=== PATIENT | female | born 1940 | race Caucasian/White ===

== ENCOUNTER 2016-12-07 07:44 | Outpatient (CLI) | payer MEDICARE, OTHER ==
[2016-12-07 12:16] LABS: BASOPHILS # (AUTO) 0.1 10^3/uL (0.0-0.1); BASOPHILS % (AUTO) 2.1 %; EOSINOPHILS # (AUTO) 0.4 10^3/uL (0.0-0.7); EOSINOPHILS % (AUTO) 6.2 %; HCT - HEMATOCRIT 41.1 % (37.0-47.0); HGB - HEMOGLOBIN 13.5 g/dL (12.0-16.0); LYMPHOCYTES # (AUTO) 1.1 10^3/uL (1.5-3.5); LYMPHOCYTES % (AUTO) 17.5 %; MEAN CORPUSCULAR HEMOGLOBIN 32.7 pg (27.0-31.0); MEAN CORPUSCULAR HGB CONC 32.8 g/dL (32.0-36.0); MEAN CORPUSCULAR VOLUME 99.7 fL (81.0-99.0); MEAN PLATELET VOLUME 11.2 fL (7.9-10.8); MONOCYTES # (AUTO) 0.5 10^3/uL (0.0-1.0); MONOCYTES % (AUTO) 8.7 %; NEUTROPHILS % (AUTO) 65.5 %; RED BLOOD COUNT 4.13 10^6/uL (4.20-5.40); RED CELL DISTRIBUTION WIDTH 13.3 % (12.0-15.0); UNCORRECTED WHITE BLOOD COUNT 6.1 x10^3/uL; WHITE BLOOD COUNT 6.1 x10^3/uL (4.8-10.8)
[2016-12-07 12:23] LABS: ALBUMIN/GLOBULIN RATIO 1.8 (1.0-2.2); BILIRUBIN,TOTAL 0.7 mg/dL (0.2-1.0); BUN - BLOOD UREA NITROGEN 15 mg/dL (6-20); CALCIUM 9.5 mg/dL (8.5-10.3); CARBON DIOXIDE - CO2 30 mmol/L (21-32); CHLORIDE 101 mmol/L (101-111); CHOL/HDL RATIO 2.6 (<4.4); CHOLESTEROL 214 mg/dL; CREATININE 0.7 mg/dL (0.4-1.0); GFR - MDRD 81 (>89); GLUCOSE 107 mg/dL (70-100); HDL CHOLESTEROL 83 mg/dL; LDL/HDL RATIO 1.3 (<4.4); POTASSIUM 4.2 mmol/L (3.5-5.0); SODIUM 137 mmol/L (135-145); TOTAL PROTEIN 6.9 g/dL (6.7-8.2); TRIGLYCERIDES 101 mg/dL; VLDL CHOLESTEROL 20 mg/dL
[2016-12-07 20:37] LABS: HEMOGLOBIN A1C 0.5 g/dL
== END 2016-12-07 07:45 | disposition home or self-care (01) ==
LOC: LAB.F 07:44
PROVIDERS: ATTEND Internal Medicine
DX: E03.9 Hypothyroidism, unspecified (principal); R73.9 Hyperglycemia, unspecified; G25.0 Essential tremor; D05.10 Intraductal carcinoma in situ of unspecified breast
CPT/HCPCS: 36415; 80053; 80061; 83036; 84443; 85025

== ENCOUNTER 2017-06-02 08:32 | Outpatient (CLI) | payer MEDICARE, OTHER ==
[2017-06-02 11:11] LABS: HB2 TOTAL 14.3 g/dL; HEMOGLOBIN A1C 0.51 g/dL; HEMOGLOBIN A1C % 5.4 % (4.6-6.2)
== END 2017-06-02 08:33 | disposition home or self-care (01) ==
LOC: LAB.F 08:32
PROVIDERS: ATTEND Internal Medicine
DX: R73.9 Hyperglycemia, unspecified (principal); E03.9 Hypothyroidism, unspecified
CPT/HCPCS: 36415; 82947; 83036; 84443

== ENCOUNTER 2018-01-24 14:08 | Outpatient (CLI) | payer MEDICARE, OTHER ==
--- NOTE | 2018-01-31 09:13 | Mammography Report ---
Reason: SCREENING MAMMO Procedure Date: 01/24/2018 Accession Number: [id number] / [id number] Procedure: [facility] - Screening Mammo w/Iggy CPT Code: FULL RESULT: EXAM: Screening Mammo w/Iggy DATE: 01/24/2018 4:55 PM CLINICAL HISTORY: 77-year-old female with history of breast biopsy and family history of breast cancer in the mother at age 70 presents for screening. TECHNIQUE: Bilateral CC and MLO views were obtained. COMPARISON: 11/18/2016, 09/25/2015, 07/24/2014, 05/17/2013. FINDINGS: The breasts demonstrate heterogeneously dense fibroglandular parenchyma bilaterally. Coarse typically benign calcifications are identified. No suspicious masses, clustered microcalcifications, or regions of architectural distortion are identified. IMPRESSION: Benign findings RECOMMENDATION: Routine annual screening unless otherwise clinically indicated. BIRADS CATEGORY 2: Benign findings STANDARD QUALIFYING STATEMENTS: 1. This examination was not reviewed with the aid of Computer-Aided Detection (CAD). 2. A negative or benign imaging report should not delay biopsy if clinically suspicious findings are present. Consider surgical consultation if warranted. More than 5% of cancers are not identified by imaging. 3. Dense breasts may obscure an underlying neoplasm. 4. This examination was reviewed with the aid of 3D breast imaging (tomosynthesis).
== END 2018-01-24 14:09 | disposition home or self-care (01) ==
LOC: DI 14:08
DX: Z12.31 Encounter for screening mammogram for malignant neoplasm of breast (principal); Z80.3 Family history of malignant neoplasm of breast
CPT/HCPCS: 77063; 77067

== ENCOUNTER 2018-02-16 08:37 | Outpatient (CLI) | payer MEDICARE, OTHER ==
[2018-02-16 11:23] LABS: BASOPHILS # (AUTO) 0.1 10^3/uL (0.0-0.1); BASOPHILS % (AUTO) 1.4 %; EOSINOPHILS # (AUTO) 0.5 10^3/uL (0.0-0.7); HGB - HEMOGLOBIN 13.2 g/dL (12.0-16.0); LYMPHOCYTES # (AUTO) 1.1 10^3/uL (1.5-3.5); LYMPHOCYTES % (AUTO) 16.6 %; MEAN CORPUSCULAR HEMOGLOBIN 33.4 pg (27.0-31.0); MEAN CORPUSCULAR HGB CONC 34.1 g/dL (32.0-36.0); MONOCYTES # (AUTO) 0.6 10^3/uL (0.0-1.0); MONOCYTES % (AUTO) 9.9 %; NEUTROPHILS # (AUTO) 4.3 10^3/uL (1.5-6.6); NEUTROPHILS % (AUTO) 65.1 %; PLT - PLATELET COUNT 307 10^3/uL (130-450); RED BLOOD COUNT 3.95 10^6/uL (4.20-5.40); RED CELL DISTRIBUTION WIDTH 13.3 % (12.0-15.0); WHITE BLOOD COUNT 6.5 x10^3/uL (4.8-10.8)
[2018-02-16 11:32] LABS: ALBUMIN 4.4 g/dL (3.2-5.5); ALBUMIN/GLOBULIN RATIO 1.6 (1.0-2.2); BILIRUBIN,TOTAL 0.6 mg/dL (0.2-1.0); CALCIUM 9.2 mg/dL (8.5-10.3); CREATININE 0.6 mg/dL (0.4-1.0); TOTAL PROTEIN 7.1 g/dL (6.7-8.2)
[2018-02-16 11:48] LABS: HB2 TOTAL 13.7 g/dL; HEMOGLOBIN A1C 0.51 g/dL; HEMOGLOBIN A1C % 5.6 % (4.6-6.2)
== END 2018-02-16 08:38 | disposition home or self-care (01) ==
LOC: LAB.F 08:37
PROVIDERS: ATTEND Internal Medicine
DX: R73.9 Hyperglycemia, unspecified (principal); E03.9 Hypothyroidism, unspecified; G25.0 Essential tremor; D05.10 Intraductal carcinoma in situ of unspecified breast
CPT/HCPCS: 36415; 80053; 83036; 84443; 85025

== ENCOUNTER 2019-04-06 15:47 | Outpatient (CLI) | payer MEDICARE, OTHER ==
--- NOTE | 2019-04-07 10:07 | DEXA Report ---
Reason: POSTMENOPAUSAL Procedure Date: 04/06/2019 Accession Number: [id number] / [id number] Procedure: DEX - Dexa Spine and/or Hip CPT Code: Final Report FULL RESULT: EXAM: Dexa Spine and/or Hip DATE: 04/06/2019 4:52 PM CLINICAL HISTORY: POSTMENOPAUSAL TECHNIQUE: Dual energy x-ray absorptiometry (DXA) was performed on a [employer] System. Regions measured are the AP Spine, femoral neck, and if needed forearm. COMPARISON: 09/19/2015. In accordance with the International Society for Clinical Densitometry (ISCD) guidelines, data from previous exams may be reanalyzed using current recommendations and techniques. This is done to allow a more accurate basis for comparison with the current study. FINDINGS: The data for the lumbar spine is as follows: BMD (g/cm/cm) T-SCORE Z-SCORE REGION L1 1.207 0.6 2.2 L2 1.415 1.8 3.3 L3 1.493 2.4 4.0 L4 1.442 2.0 3.6 TOTAL 1.399 1.8 3.4 NOTE: All evaluable vertebrae are used for classification The data for the hip is as follows: BMD (g/cm/cm) T-SCORE Z-SCORE REGION Neck 1.055 0.1 2.1 TOTAL 0.953 -0.4 1.3 NOTE: The femoral neck or total proximal femur, whichever is lowest, is used for classification. DXA RESULTS SUMMARY: Spine SCAN DATE AGE BMD CHANGE VS CHANGE VS PREVIOUS PREVIOUS % 04[age]06/2019 [age] 1.442 -0.108* -7.0* 09/18/2016 [age] 1.550 * Denotes significant change at the 95% confidence level. Denotes dissimilar scan types or analysis methods. DXA RESULTS SUMMARY: Hip SCAN DATE AGE BMD CHANGE VS CHANGE VS PREVIOUS PREVIOUS % [birth year]06/2019 78.7 0.953 0.001 0.1 09/19/2015 [age] 0.952 * Denotes significant change at the 95% confidence level. Denotes dissimilar scan types or analysis methods. IMPRESSION: THE WHO CLASSIFICATION BASED ON THE INTERNATIONAL REFERENCE STANDARD IS NORMAL. THE FRACTURE RISK IS NOT INCREASED. Interval decrease in bone density in the spine is statistically significant. RECOMMENDATION: Patients with diagnosis of osteoporosis or osteopenia should have regular bone mineral density assessment. For those eligible for Medicare, routine testing is allowed once every 2 years. Testing frequency can be increased for patients who have rapidly progressing disease or for those who are receiving medical therapy to restore bone mass. COMMENT: World Health Organization (WHO) definitions for osteoporosis and osteopenia: NORMAL BMD: T-score at -1.0 or higher, fracture risk is low OSTEOPENIA BMD: T-score between -1.0 and -2.5, fracture risk is increased. OSTEOPOROSIS BMD: T-score at -2.5 or lower, fracture risk is high. National Osteoporosis Foundation recommends: 1. Obtain adequate dietary calcium (at least 1200 mg per day) and vitamin D (400-800 international units per day). 2. Participate, as appropriate, in regular weightbearing and muscle-strengthening exercise. 3. Avoid tobacco use and reduce alcohol and caffeine intake. 4. For more detailed information see the website at www.NOF.org.
== END 2019-04-06 15:48 | disposition home or self-care (01) ==
LOC: DI 15:47
PROVIDERS: ATTEND Physician Assistant
DX: Z78.0 Asymptomatic menopausal state (principal)
CPT/HCPCS: 77080

== ENCOUNTER 2021-07-26 10:23 | Outpatient (CLI) | payer MEDICARE, OTHER ==
[2021-07-26 18:19] LABS: BASOPHILS # (AUTO) 0.2 10^3/uL (0.0-0.1); BASOPHILS % (AUTO) 2.5 %; EOSINOPHILS # (AUTO) 0.5 10^3/uL (0.0-0.7); HGB - HEMOGLOBIN 12.6 g/dL (12.0-16.0); LYMPHOCYTES # (AUTO) 0.8 10^3/uL (1.5-3.5); LYMPHOCYTES % (AUTO) 12.7 %; MEAN CORPUSCULAR HEMOGLOBIN 32.1 pg (27.0-31.0); MEAN CORPUSCULAR HGB CONC 32.3 g/dL (32.0-36.0); MEAN CORPUSCULAR VOLUME 99.5 fL (81.0-99.0); MONOCYTES # (AUTO) 0.6 10^3/uL (0.0-1.0); MONOCYTES % (AUTO) 9.4 %; NEUTROPHILS # (AUTO) 4.4 10^3/uL (1.5-6.6); NEUTROPHILS % (AUTO) 67.2 %; PLT - PLATELET COUNT 332 10^3/uL (130-450); RED BLOOD COUNT 3.92 10^6/uL (4.20-5.40); RED CELL DISTRIBUTION WIDTH 14.2 % (12.0-15.0); WHITE BLOOD COUNT 6.5 x10^3/uL (4.8-10.8)
[2021-07-26 18:44] LABS: ALBUMIN 4.2 g/dL (3.2-5.5); ALBUMIN/GLOBULIN RATIO 1.6 (1.0-2.2); ALKALINE PHOSPHATASE 67 IU/L (42-121); ALT ALANINE AMINOTRANSFERASE 25 IU/L (10-60); AST ASPARTATE AMINOTRANSFERASE 30 IU/L (10-42); BILIRUBIN,TOTAL 0.6 mg/dL (0.2-1.0); BUN - BLOOD UREA NITROGEN 16 mg/dL (6-20); CALCIUM 9.5 mg/dL (8.5-10.3); CARBON DIOXIDE - CO2 30 mmol/L (21-32); CHLORIDE 99 mmol/L (101-111); CHOL/HDL RATIO 2.4 (<4.4); CHOLESTEROL 187 mg/dL; CREATININE 0.7 mg/dL (0.4-1.0); GFR - MDRD 80 (>89); GLUCOSE 103 mg/dL (70-100); HDL CHOLESTEROL 77 mg/dL; LDL CHOLESTEROL,CALCULATED 97 mg/dL; LDL/HDL RATIO 1.3 (<4.4); POTASSIUM 4.4 mmol/L (3.5-5.0); SODIUM 138 mmol/L (135-145); TOTAL PROTEIN 6.9 g/dL (6.7-8.2); TRIGLYCERIDES 65 mg/dL; VLDL CHOLESTEROL 13 mg/dL
[2021-07-27 07:34] LABS: ESTIMATED AVERAGE GLUCOSE 114 mg/dL (70-100); HEMOGLOBIN A1c% 5.6 % (4.27-6.07)
== END 2021-07-26 10:24 | disposition home or self-care (01) ==
LOC: LAB.S 10:23
PROVIDERS: ATTEND Internal Medicine
DX: Z13.1 Encounter for screening for diabetes mellitus (principal); R79.89 Other specified abnormal findings of blood chemistry; Z13.220 Encounter for screening for lipoid disorders; G47.33 Obstructive sleep apnea (adult) (pediatric); R30.0 Dysuria
CPT/HCPCS: 36415; 80053; 80061; 83036; 83721; 84443; 85025

== ENCOUNTER 2022-04-30 07:50 | Emergency (ER) | payer MEDICARE, OTHER ==
--- NOTE | 2022-04-30 08:11 | ED Physician Documentation ---
PD HPI CHEST PAIN - Stated complaint Stated Complaint: HEART PALPITATIONS - Chief complaint Chief Complaint: Cardiac - History of Present Illness Timing - onset: How many weeks ago (has had feeling of irregularity of heart rhythm intermittently for the past week or more. No chest pain per se.) Timing - onset during: Rest (mostly feeling it during rest or when lying in bed. not noted during activity/axercise. no exertional cp, dyspnae, near syncope.) Timing - duration: Minutes (she states episode of hR feeling fast will last from couple of minutes to longest of about 30 mimutes.) Timing - details: Intermittant Quality: No: Pressure, Tightness, Aching Location: Substernal Radiation: No: Jaw, Neck Worsened by: No: Inspiration Associated symptoms: Palpitations. No: Shortness of air, Nausea, Feeling faint / dizzy Similar symptoms before: Has not had sx before (this is new for her the past few weeks.) Recently seen: Clinic (seen by endocriniologist about thyroid function about 2 months ago and has been on thryoid supplemnt about 2 months.) Review of Systems Constitutional: denies: Fever, Chills Nose: denies: Rhinorrhea / runny nose, Congestion Throat: denies: Sore throat Cardiac: reports: Palpitations. denies: Chest pain / pressure, Pedal edema, Calf pain Respiratory: denies: Cough GI: denies: Abdominal Pain, Nausea, Vomiting Skin: denies: Rash, Lesions PD PAST MEDICAL HISTORY - Past Medical History Cardiovascular: None Respiratory: None Neuro: None Endocrine/Autoimmune: HyPOthyroidism GI: None - Present Medications Home Medications: Ambulatory Orders Medication Instructions Recorded Confirmed Levothyroxine [Synthroid] 25 mcg PO QDAC 04/30/22 04/30/22 dilTIAZem HCL [Diltiazem HCl] 60 mg PO BID PRN #10 tablet 04/30/22 valACYclovir [Valtrex] 500 mg PO DAILY 04/30/22 04/30/22 - Allergies Allergies/Adverse Reactions: Allergies Allergy/AdvReac Type Severity Reaction Status Date / Time No Known Drug Allergies Allergy Verified 04/30/22 08:07 - Social History Does the pt smoke?: No Does the pt drink ETOH?: Yes ETOH Use: Wine (1-2 drinks several times per week. ) Does the pt have substance abuse?: No - Family History Family history: reports: Non contributory PD ED PE NORMAL - Vitals Vital signs reviewed: Yes - General General: Alert and oriented X 3, No acute distress, Well developed/nourished - Neck Neck: Supple, no meningeal sign, No adenopathy, Thyroid normal - Cardiac Cardiac: RRR, No murmur - Respiratory Respiratory: Clear bilaterally - Abdomen Abdomen: Normal bowel sounds, Soft, Non tender, Non distended - Derm Derm: Normal color, Warm and dry - Extremities Extremities: No edema, No calf tenderness / cord - Neuro Neuro: Alert and oriented X 3, No motor deficit, Normal speech Results - Vitals Vitals: Vital Signs - 24 hr 04/30/22 04/30/22 08:01 09:41 Temperature 36.8 C 36.7 C Heart Rate 70 68 Respiratory 16 18 Rate Blood Pressure 138/54 H 139/61 H O2 Saturation 99 100 Oxygen O2 Source Room air - EKG (time done) 08:07 Rate: Rate (enter#) (66) Rhythm: NSR [place]: Normal Intervals: Normal [place] QRS: Normal Ischemia: Normal ST segments. No: ST elevation c/w ischemia, ST depression Compare to prior EKG: Old EKG unavailable - Labs Labs: Laboratory Tests 04/30/22 04/30/22 04/30/22 08:50 08:50 08:50 WBC 7.7 RBC 4.09 L Hgb 13.0 Hct 40.4 MCV 98.8 MCH 31.8 H MCHC 32.2 RDW 13.2 Plt Count 375 MPV 12.0 H Neut # (Auto) 5.8 Lymph # (Auto) 0.7 L [place] # (Auto) 0.6 Eos # (Auto) 0.5 Baso # (Auto) 0.1 Absolute Nucleated RBC 0.00 Nucleated RBC % 0.0 Sodium 134 L Potassium 4.3 Chloride 97 L Carbon Dioxide 31 Anion Gap 6.0 BUN 23 H Creatinine 0.7 Estimated GFR (MDRD) 80 L Glucose 117 H Calcium 9.5 Magnesium 2.4 Total Bilirubin 0.6 AST 28 ALT 20 Alkaline Phosphatase 62 B-Natriuretic Peptide 50 Total Protein 7.2 Albumin 4.2 Globulin 3.0 Albumin/Globulin Ratio 1.4 Lipase 55 H TSH Thyroxine (T4) Free T3 pg/mL T3 Uptake 04/30/22 08:50 WBC RBC Hgb Hct MCV MCH MCHC RDW Plt Count MPV Neut # (Auto) Lymph # (Auto) [place] # (Auto) Eos # (Auto) Baso # (Auto) Absolute Nucleated RBC Nucleated RBC % Sodium Potassium Chloride Carbon Dioxide Anion Gap BUN Creatinine Estimated GFR (MDRD) Glucose Calcium Magnesium Total Bilirubin AST ALT Alkaline Phosphatase B-Natriuretic Peptide Total Protein Albumin Globulin Albumin/Globulin Ratio Lipase TSH 2.53 Thyroxine (T4) 7.06 Free T3 pg/mL 2.77 T3 Uptake 41.2 PD Medical Decision Making - ED course Complexity details: reviewed results, considered differential (it sounds like possible paroxysmal atrial fib, or svt or frequent pac/PVCs. Of course, there is not any symptoms here to eval on monitor/ECG. ), d/w patient, d/w taxation consultant (I talked with arya, nurse at [facility], as patient's pmd is out of the office. they will attempt to set patient up with ziopatch type heart monitor in next couple of days. patient has had symptoms episodically over 1-2 weeks, so seems non threatening, so time to get it evaluated seems safe.) Departure - Departure Disposition: 01 Home, Self Care Clinical Impression: Intermittent palpitations Condition: Stable Record reviewed to determine appropriate education?: Yes Instructions: ED Palpitations Prescriptions: dilTIAZem HCL [Diltiazem HCl] 60 mg PO BID PRN #10 tablet PRN Reason: Tachycardia Comments: Your basic electrolytes here are good including potassium, magnesium, calcium and sodium. I do not have your thyroid test results back as yet. Those likely will result later today. You can find the results on your patient portal and they will be available to your primary care. For now be sure to stay well-hydrated.. You could decrease your thyroid medication to every other day for now pending the thyroid test results and talking with your certified juvenile probation officer. Defining what type of irregular heart rhythm you are having will be the most useful. I talked with one of the nurses at the [facility] (Arya) who will discuss it with one of the providers and see if they will set you up with the outpatient heart rhythm monitor that you wear for a week. They we will call you later today to advise on it. I will be the next step in seeing what these episodes are. Meanwhile if you have an episode that is prolonged, lasting more than 30 minutes or so and is bothersome, you could try oral diltiazem. It will take 20 or 30 minutes for the medication to have an effect but see if it will slow the heart rate and control it better. I wrote a script for some of these to have on hand, and transmitted it to [facility] in [place]. This approach is called the "pill in the pocket" idea of taking it just when having prolonged symptoms. I would not suggest taking the diltiazem regularly at this point and when you have the heart monitor on, be sure to allow the abnormal rhythm to go for a a while before taking the diltiazem so that it gets a good recording of it. Return to the ER if other symptoms associated with the irregularity such as chest pain, shortness of breath, near fainting or other concerns. Discharge Date/Time: 04/30/22 09:41
[2022-04-30 08:59] LABS: BASOPHILS # (AUTO) 0.1 10^3/uL (0.0-0.1); BASOPHILS % (AUTO) 1.8 %; EOSINOPHILS # (AUTO) 0.5 10^3/uL (0.0-0.7); EOSINOPHILS % (AUTO) 5.8 %; HCT - HEMATOCRIT 40.4 % (37.0-47.0); LYMPHOCYTES # (AUTO) 0.7 10^3/uL (1.5-3.5); LYMPHOCYTES % (AUTO) 9.4 %; MEAN CORPUSCULAR HEMOGLOBIN 31.8 pg (27.0-31.0); MEAN CORPUSCULAR HGB CONC 32.2 g/dL (32.0-36.0); MEAN CORPUSCULAR VOLUME 98.8 fL (81.0-99.0); MONOCYTES # (AUTO) 0.6 10^3/uL (0.0-1.0); MONOCYTES % (AUTO) 7.4 %; NEUTROPHILS # (AUTO) 5.8 10^3/uL (1.5-6.6); NEUTROPHILS % (AUTO) 75.3 %; PLT - PLATELET COUNT 375 10^3/uL (130-450); RED BLOOD COUNT 4.09 10^6/uL (4.20-5.40); RED CELL DISTRIBUTION WIDTH 13.2 % (12.0-15.0); WHITE BLOOD COUNT 7.7 x10^3/uL (4.8-10.8)
[2022-04-30 09:11] LABS: ALBUMIN 4.2 g/dL (3.2-5.5); ALBUMIN/GLOBULIN RATIO 1.4 (1.0-2.2); BILIRUBIN,TOTAL 0.6 mg/dL (0.2-1.0); CALCIUM 9.5 mg/dL (8.5-10.3); CREATININE 0.7 mg/dL (0.4-1.0); MAGNESIUM 2.4 mg/dL (1.7-2.8); POTASSIUM 4.3 mmol/L (3.5-5.0); TOTAL PROTEIN 7.2 g/dL (6.7-8.2)
[2022-04-30 09:25] LABS: T3 UPTAKE 41.2 % (32.0-48.4)
[2022-04-30 09:26] LABS: T4 (THYROXINE) 7.06 ug/dL (6.09-12.23)
[2022-04-30 09:28] LABS: THYROID STIMULATING HORMONE 2.53 uIU/mL (0.34-5.60)
[2022-04-30 09:29] LABS: FREE T3 2.77 pg/mL (2.5-3.9)
[2022-04-30 09:42] VITALS: BP 139/61
== END 2022-04-30 09:41 | disposition home or self-care (01) ==
LOC: ED 07:50
DX: R00.2 Palpitations (principal); E03.9 Hypothyroidism, unspecified
CPT/HCPCS: 36415; 80053; 83690; 83735; 83880; 84436; 84443; 84479; 84481; 85025; 93005; 99283; 99284

== ENCOUNTER 2022-05-05 13:29 | Outpatient (CLI) | payer MEDICARE, OTHER | END 2022-05-05 13:30 | disposition home or self-care (01) | LOC: MAC.MOP 13:29 | PROVIDERS: ATTEND Internal Medicine | DX: R00.2 Palpitations (principal) | CPT/HCPCS: 93246 ==

== ENCOUNTER 2022-05-20 09:36 | Outpatient (CLI) | payer MEDICARE, OTHER | END 2022-05-20 09:37 | disposition home or self-care (01) | LOC: MAC.MOP 09:36 | PROVIDERS: ATTEND Internal Medicine | DX: Z53.9 Procedure and treatment not carried out, unspecified reason (principal) ==

== ENCOUNTER 2022-05-31 10:30 | Outpatient (CLI) | payer MEDICARE, OTHER | END 2022-05-31 10:31 | disposition home or self-care (01) | LOC: MAC.INF 10:30 | PROVIDERS: ATTEND Internal Medicine | DX: R00.2 Palpitations (principal); I47.1 Supraventricular tachycardia; I47.20 Ventricular tachycardia, unspecified; I49.1 Atrial premature depolarization; I45.9 Conduction disorder, unspecified; I49.3 Ventricular premature depolarization | CPT/HCPCS: 93248 ==

== ENCOUNTER 2022-07-07 10:47 | Outpatient (CLI) | payer MEDICARE, OTHER ==
--- NOTE | 2022-07-08 12:13 | Mammography Report ---
BILATERAL DIGITAL SCREENING MAMMOGRAM 3D/2D: 07/07/2022 CLINICAL: Routine screening. Comparison is made to exams dated: 01/24/2018 mammogram - [facility], 11/18/2016 ma mmogram, 09/25/2015 mammogram, 07/24/2014 mammogram, 05/17/2013 mammogram, and 04/20/2012 mammogram - Out side facility. Both breasts are heterogeneously dense, which may obscure small masses (category c / 51-75% glandular tissue). There is a pleomorphic calcification in the left breast at 7 o'clock middle depth. No other significant masses, calcifications, or other findings are seen in either breast. IMPRESSION: INCOMPLETE: NEEDS ADDITIONAL IMAGING EVALUATION The pleomorphic calcification in the left breast is indeterminate. Additional views with possible ul trasound are recommended. Based on the Tyrer Cuzick model (a risk assessment model) the patients lifetime risk is 1.3% and her 10 year risk is 0.0%. According to the ACR, ACS, and NCCN guidelines, an annual breast MRI exam katina g with mammogram is recommended if the patients lifetime risk is 20% or greater. This exam was interpreted at Station ID: [id number]. NOTE: For mammograms, a report in lay terms will be sent to the patient. Approximately 15% of breast malignancies will not be visualized mammographically. In the management of a palpable breast mass, a negative mammogram must not discourage biopsy of a clinically suspicious lesion. Electronically Signed By: Sparkle adams/[email or web address]:07/07/2022 15:58:24 ACR BI-RADS Category 0: Incomplete 3340F PARENCHYMAL PATTERN: (D) - The breast(s) demonstrate(s) heterogeneously dense fibroglandular parenchy ma. BI-RADS CATEGORY: (0) - 0 Mammo and [place] [id number] Immediate follow-up LATERALITY: (B)
== END 2022-07-07 10:48 | disposition home or self-care (01) ==
LOC: DI.S 10:47
DX: Z12.31 Encounter for screening mammogram for malignant neoplasm of breast (principal); R92.1 Mammographic calcification found on diagnostic imaging of breast

== ENCOUNTER 2022-10-22 09:03 | Outpatient (CLI) | payer MEDICARE, OTHER | END 2022-10-22 09:04 | disposition home or self-care (01) | LOC: DI 09:03 | PROVIDERS: ATTEND Internal Medicine Cardiovascular Disease | DX: I27.20 Pulmonary hypertension, unspecified (principal); I08.0 Rheumatic disorders of both mitral and aortic valves | CPT/HCPCS: 93306 ==

== ENCOUNTER 2023-07-20 08:04 | Outpatient (CLI) | payer MEDICARE, OTHER ==
[2023-07-20 14:50] LABS: BASOPHILS # (AUTO) 0.1 10^3/uL (0.0-0.1); BASOPHILS % (AUTO) 1.9 %; EOSINOPHILS # (AUTO) 0.6 10^3/uL (0.0-0.7); EOSINOPHILS % (AUTO) 7.8 %; HCT - HEMATOCRIT 38.6 % (37.0-47.0); LYMPHOCYTES # (AUTO) 0.9 10^3/uL (1.5-3.5); LYMPHOCYTES % (AUTO) 12.5 %; MEAN CORPUSCULAR HEMOGLOBIN 31.4 pg (27.0-31.0); MEAN CORPUSCULAR HGB CONC 31.1 g/dL (32.0-36.0); MEAN PLATELET VOLUME 13.9 fL (7.9-10.8); MONOCYTES # (AUTO) 0.7 10^3/uL (0.0-1.0); MONOCYTES % (AUTO) 8.8 %; NEUTROPHILS # (AUTO) 5.2 10^3/uL (1.5-6.6); NEUTROPHILS % (AUTO) 68.7 %; PLT - PLATELET COUNT 329 10^3/uL (130-450); RED BLOOD COUNT 3.82 10^6/uL (4.20-5.40); RED CELL DISTRIBUTION WIDTH 14.3 % (12.0-15.0); WHITE BLOOD COUNT 7.5 x10^3/uL (4.8-10.8)
[2023-07-20 15:24] LABS: THYROID STIMULATING HORMONE 4.18 uIU/mL (0.34-5.60)
[2023-07-20 15:49] LABS: ALBUMIN 4.2 g/dL (3.2-5.5); ALBUMIN/GLOBULIN RATIO 1.6 (1.0-2.2); ALKALINE PHOSPHATASE 59 IU/L (42-121); ALT ALANINE AMINOTRANSFERASE 13 IU/L (10-60); AST ASPARTATE AMINOTRANSFERASE 20 IU/L (10-42); BILIRUBIN,TOTAL 0.7 mg/dL (0.2-1.0); BUN - BLOOD UREA NITROGEN 16 mg/dL (6-20); CALCIUM 10.3 mg/dL (8.5-10.3); CARBON DIOXIDE - CO2 29 mmol/L (21-32); CHLORIDE 102 mmol/L (101-111); CHOL/HDL RATIO 2.6 (<4.4); CHOLESTEROL 213 mg/dL; CREATININE 0.7 mg/dL (0.6-1.3); GFR - MDRD 80 (>89); GLUCOSE 85 mg/dL (74-104); HDL CHOLESTEROL 82 mg/dL; LDL CHOLESTEROL,CALCULATED 117 mg/dL; LDL/HDL RATIO 1.4 (<4.4); POTASSIUM 4.7 mmol/L (3.5-4.5); SODIUM 139 mmol/L (135-145); TOTAL PROTEIN 6.9 g/dL (6.4-8.9); TRIGLYCERIDES 72 mg/dL (48-352); VLDL CHOLESTEROL 14 mg/dL
[2023-07-20 20:34] LABS: ESTIMATED AVERAGE GLUCOSE 120 mg/dL (70-100); HEMOGLOBIN A1c% 5.8 % (4.27-6.07)
== END 2023-07-20 08:05 | disposition home or self-care (01) ==
LOC: LAB.S 08:04
PROVIDERS: ATTEND Internal Medicine
DX: R73.01 Impaired fasting glucose (principal); R73.9 Hyperglycemia, unspecified; G25.0 Essential tremor; Z13.9 Encounter for screening, unspecified; E03.9 Hypothyroidism, unspecified
CPT/HCPCS: 36415; 80053; 80061; 83036; 83721; 84443; 85025

== ENCOUNTER 2023-08-18 10:16 | Outpatient (CLI) | payer MEDICARE, OTHER ==
[2023-08-19 08:11] LABS: VITAMIN D 25-HYDROXY 28.9 ng/mL (30.0-100.0)
[2023-08-19 09:11] LABS: CALCIUM IONIZED SERUM 4.9 mg/dL (4.5-5.6)
== END 2023-08-18 10:17 | disposition home or self-care (01) ==
LOC: LAB.S 10:16
PROVIDERS: ATTEND Internal Medicine
DX: E55.9 Vitamin D deficiency, unspecified (principal)
CPT/HCPCS: 36415; 82306; 82330; 83970

== ENCOUNTER 2023-08-31 13:02 | Outpatient (CLI) | payer MEDICARE, OTHER ==
--- NOTE | 2023-09-04 16:50 | DEXA Report ---
PROCEDURE: Dexa Spine and/or Hip INDICATIONS: POST MENOPAUSAL TECHNIQUE: Dual energy x-ray absorptiometry (DXA) was performed on a [employer] System. Regions measur ed are the AP Spine, femoral neck, and if needed forearm. COMPARISON: DEXA on April 06, 2019 FINDINGS: Lumbar Spine: Bone Mineral Density: 1.353 g/cm/cm,T score: 1.4. Since the most recent prior study, there has been a statistically significant decrease in bone mineral density by 3.3 percent. Left Femoral Neck: Bone Mineral Density: 0.962 g/cm/cm, T score: -0.5. Left Hip: Bone Mineral Density: 0.932 g/cm/cm,T score: -0.6. There has been no statistically significant change in bone mineral density since the prior study. (T score greater or equal to -1.0: NORMAL) (T score from -1.1 to -2.4: OSTEOPENIA) (T score less than or equal to -2.5 to: OSTEOPOROSIS) Impression: By WHO criteria, this patient has normal bone density. Interval statistical decrease in bone mineral density of the lumbar spine. No statistical interval ch polly in bone mineral density of the hip. Patients with diagnosis of osteoporosis or osteopenia should have regular bone mineral density assess ment. For those eligible for Medicare, routine testing is allowed once every 2 years. Testing frequ ency can be increased for patients who have rapidly progressing disease or for those who are receivin g medical therapy to restore bone mass. Reviewed by: Kelsey Renee MD on 09/04/2023 4:48 PM PDT Approved by: Kelsey Renee MD on 09/04/2023 4:48 PM PDT Station ID: [id number]
== END 2023-08-31 13:03 | disposition home or self-care (01) ==
LOC: DI 13:02
PROVIDERS: ATTEND Internal Medicine
DX: N95.9 Unspecified menopausal and perimenopausal disorder (principal)

== ENCOUNTER 2023-11-22 16:04 | Outpatient (CLI) | payer MEDICARE, OTHER ==
--- NOTE | 2023-11-22 17:03 | Ultrasound Report ---
PROCEDURE: Renal (Retroperitoneal) INDICATIONS: R FLANK PAIN TECHNIQUE: Real-time scanning was performed of the retroperitoneal organs, with image documentation. COMPARISON: None. FINDINGS: Kidneys: Kidneys are normal in size. Right kidney measures 9.5 cm long; left kidney measures 12.9 c m long. Right renal cortical thickness is 1.1 cm; left renal cortical thickness is 1.4 cm. No solid masses, hydronephrosis, or nephrolithiasis. 1 cm simple cyst at the superior pole of the left kidne y. Bladder: Pre-void bladder volume is 423 mL. Post-void residual is 17.2 mL. Pre-void images demonst rate no intraluminal masses or stones. On pre-void images, bilateral ureteral jets are noted with co ofe Doppler interrogation. (Of note, ureteral jets may not be detectable in up to 25% of cases due t o insufficient differences in specific gravity between ureteral and bladder urine). Miscellaneous: No free abdominal fluid. IMPRESSION: 1.No sonographic evidence of hydronephrosis or obstructive urolithiasis. 2.Mild atrophic appearance of the right kidney compared to the left. 3.No evidence of urinary retention. Reviewed by: Carrillo Vigil MD on 11/22/2023 5:02 PM PDT Approved by: Carrillo Vigil MD on 11/22/2023 5:02 PM PDT Station ID: [id number]
== END 2023-11-22 16:05 | disposition home or self-care (01) ==
LOC: DI 16:04
PROVIDERS: ATTEND Internal Medicine
DX: N26.1 Atrophy of kidney (terminal) (principal); R10.9 Unspecified abdominal pain